=== PATIENT | male | born 1965 | race Caucasian/White ===

== ENCOUNTER 2017-04-03 16:15 | Emergency (ER) | payer OTHER ==
--- NOTE | 2017-04-03 16:49 | PDOC ---
History of Present Illness - General History Source: Patient Exam Limitations: No Limitations - History of Present Illness Initial Comments: 04/03/17 17:04 The patient is a 51 year old male, with a significant past medical history of hypertension, hyperlipidemia, and asthmatic bronchitis, who presents to the emergency department s/p sustaining a laceration to his left finger earlier this afternoon. The patient reports he was at the [employer] office earlier today, and placed his left hand in a metal mail slot to place a letter. However , when he went to pull his hand out, he reports his left index finger got caught. Patient reports cutting his left index finger and being able to see his bone. He denies any pain at the site of the laceration. He denies any fever , chills, or dizziness. He denies any shortness of breath, diaphoresis, or palpitations. Allergies: None reported Past Surgical History: None reported Social History: Non smoker. No ETOH or drug use. PCP: Dr. Vasquez <Ernestina Kemp - Last Filed: 04/03/17 17:05> <Paige Kumar - Last Filed: 04/07/17 07:56> - General Chief Complaint: Injury Stated Complaint: LEFT FINGER LACERATION Time Seen by Provider: 04/03/17 16:47 Past History <Ernestina Kemp - Last Filed: 04/03/17 17:05> - Past Medical History HTN: Yes Hypercholesterolemia: Yes - Immunization History Td Vaccination: No - Psycho/Social/Smoking Cessation Hx Anxiety: No Suicidal Ideation: No Smoking Status: No Smoking History: Unknown if ever smoked Number of Cigarettes Smoked Daily: 0 Hx Alcohol Use: No Substance Use Type: None <Paige Kumar - Last Filed: 04/07/17 07:56> - Past Medical History Allergies/Adverse Reactions: Allergies Allergy/AdvReac Type Severity Reaction Status Date / Time No Known Allergies Allergy Verified 04/03/17 16:50 Home Medications: Ambulatory Orders Allopurinol [Zyloprim -] 150 mg PO DAILY 09/10/13 Albuterol Sulfate Inhaler - [Ventolin HFA Inhaler -] 1 - 2 inh PO Q4H #1 inhaler 10/06/14 Rosuvastatin Calcium [Crestor] 10 mg PO DAILY 10/06/14 Fish Oil 06/19/17 Ibuprofen [Motrin -] 600 mg PO TID #21 tablet 04/03/17 Montelukast Na [Singulair] 10 mg PO Q48H 04/03/17 [place]-3 Acid Ethyl Esters [Lovaza] 1 gm PO DAILY 04/03/17 Oxycodone HCl/Acetaminophen [Percocet 5-325 mg Tablet] 1 tab PO Q6H PRN #12 tablet MDD 4 tabs 04/03/17 Review of Systems - Review of Systems Able to Perform ROS?: Yes Comments:: 04/03/17 17:04 GENERAL/CONSTITUTIONAL: No fever or chills. No weakness. HEAD, EYES, EARS, NOSE AND THROAT: No change in vision. No ear pain or discharge. No sore throat. CARDIOVASCULAR: No chest pain or shortness of breath. RESPIRATORY: No cough, wheezing, or hemoptysis. GASTROINTESTINAL: No nausea, vomiting, diarrhea or constipation. GENITOURINARY: No dysuria, frequency, or change in urination. MUSCULOSKELETAL: No joint or muscle swelling or pain. No neck or back pain. SKIN: Yes: +laceration to left index finger. No rash NEUROLOGIC: No headache, vertigo, loss of consciousness, or change in strength/ sensation. ENDOCRINE: No increased thirst. No abnormal weight change. HEMATOLOGIC/LYMPHATIC: No anemia, easy bleeding, or history of blood clots. ALLERGIC/IMMUNOLOGIC: No hives or skin allergy. <Ernestina Kemp - Last Filed: 04/03/17 17:05> *Physical Exam - Vital Signs Last Vital Signs Temp Pulse Resp BP Pulse Ox 99.1 F 72 15 125/84 96 04/03/17 16:46 04/03/17 16:46 04/03/17 16:46 04/03/17 16:46 04/03/17 16:46 <Ernestina Kemp - Last Filed: 04/03/17 17:05> - Physical Exam Comments: GENERAL: Awake, alert, and fully oriented, in no acute distress. Anxious. HEAD: No signs of trauma EXTREMITIES: L index finger with C-shaped laceration overlying the PIP joint, dorsal surface. Mild oozing of blood. Tendon function intact for flexion and extension of the finger. L 3rd finger with small abrasion, no active bleeding. Remainder of extremities with normal range of motion, no edema. No clubbing or cyanosis. No cords, erythema, or tenderness NEUROLOGICAL: Cranial nerves II through XII grossly intact. Normal speech, normal gait SKIN: Warm, Dry, normal turgor, no rashes or lesions noted. <Paige Kumar - Last Filed: 04/07/17 07:56> Procedures - Laceration/Wound Repair Left Dorsal Finger 2nd digit Wound Length: to 2.5 cm Wound Explored: clean, no foreign body present Wound's Depth, Shape: superficial, flap Irrigated w/ Saline: Yes Betadine Prep: Yes Anesthesia: 1% Lidocaine Amount of Anesthetic (ccs): 3 Wound Repaired With: Sutures Suture Size/Type: 4:0, proline Number of Sutures: 6 Layer Closure: No Sterile Dressing Applied: Yes Splint Applied: Yes <Paige Kumar - Last Filed: 04/07/17 07:56> *DC/Admit/Observation/Transfer - Attestations Scribe Attestion: 04/03/17 17:05 Documentation prepared by Ernestina Kemp, acting as medical records technician for Paige Kumar MD. <Ernestina Kemp - Last Filed: 04/03/17 17:05> - Discharge Dispostion Admit: No <Paige Kumar - Last Filed: 04/07/17 07:56> Diagnosis at time of Disposition: Finger laceration Qualifiers: Encounter type: initial encounter Finger: index finger Damage to nail status: without damage Foreign body presence: without foreign body Laterality: left Qualified Code(s): S61.211A - Laceration without foreign body of left index finger without damage to nail, initial encounter - Discharge Dispostion Disposition: HOME Condition at time of disposition: Stable - Prescriptions Prescriptions: Ibuprofen [Motrin -] 600 mg PO TID #21 tablet Oxycodone HCl/Acetaminophen [Percocet 5-325 mg Tablet] 1 tab PO Q6H PRN #12 tablet MDD 4 tabs PRN Reason: Severe Pain - Referrals Referrals: Syed Vasquez MD [Primary Care Provider] - - Patient Instructions Printed Discharge Instructions: DI for Laceration Repair -- Finger Additional Instructions: RETURN TO THE ER BETWEEN 04/12-04/14 TO HAVE SUTURES REMOVED. KEEP SPLINT IN PLACE AT ALL TIMES. RETURN TO THE ER IMMEDIATELY IF YOU HAVE SEVERE PAIN, WORSENING REDNESS, RED STREAKS UP YOUR ARM, OR DRAINAGE FROM THE WOUND. KEEP THE WOUND DRY FOR THE FIRST 48 HOURS. AFTER THAT IT IS OK TO GET IT WET, BUT DO NOT APPLY ANY LOTIONS, CREAMS, OR SOAPS.
[2017-04-03 17:02] VITALS: BP 125/84; PULSE 72; TEMP 99.1; BMI 28.3
[2017-04-03] MEDS ORDERED: DIPHTH,PERTUSS(ACELL),TET VAC 0.5 ML VIAL IM ONE (17:23)
== END 2017-04-03 17:37 | disposition home or self-care (01) ==
LOC: FER 16:15
PROC: 0HQGXZZ Repair Left Hand Skin, External Approach (ICD-10-PCS; principal; 2017-04-03)
PROC: 3E0234Z Introduction of Serum, Toxoid and Vaccine into Muscle, Percutaneous Approach (ICD-10-PCS; 2017-04-03)
DX: S61.211A Laceration without foreign body of left index finger without damage to nail, initial encounter (principal); W26.9XXA Contact with unspecified sharp object(s), initial encounter; Y93.89 Activity, other specified; Y92.512 Supermarket, store or market as the place of occurrence of the external cause; I10 Essential (primary) hypertension; E78.00 Pure hypercholesterolemia, unspecified
CPT/HCPCS: 99282-25

== ENCOUNTER 2019-02-20 09:06 | Day surgery (SDC) | payer OTHER ==
[2018-12-28 09:46] VITALS: BMI 28.7
[2019-02-20] MEDS ORDERED: PROPOFOL 20 ML ONE ×6 (10:31)
[2019-02-20 11:22] VITALS: PULSE 65
[2019-02-20 11:42] VITALS: BP 110/65; TEMP 98
--- NOTE | 2019-02-26 13:05 | PATH ---
Surgical Pathology Report Patient Name: CHRISSIE DALLAS Med. Rec. #: [id number] /Age/Gender: 1965 (Age: 53) / M Account: [id number] Location: [facility] Taken: 02/20/2019 Received: 02/20/2019 Reported: 02/22/2019 Physicians: Simin Garnica M.D. Specimen(s) Received BX POLYP PROXIMAL TRANSVERSE COLON Clinical History History of polyps. Postoperative: Polyp, diverticulosis Final Diagnosis PROXIMAL TRANSVERSE COLON POLYP, BIOPSY: POLYPOID COLONIC MUCOSA WITH NO SIGNIFICANT PATHOLOGIC CHANGE. Electronically Signed Caroline Miller M.D. Gross Description Received in formalin, labeled, "polyp, proximal transverse colon" is one piece of yellow-drake tissue measuring 0.3 cm in greatest dimension. Entirely submitted in one cassette. AE/02/20/2019 ebram/02/20/2019
== END 2019-02-20 11:50 | disposition home or self-care (01) ==
LOC: FASU-ENDO 09:06
PROVIDERS: ATTEND Internal Medicine Gastroenterology
PROC: 0DBL8ZX Excision of Transverse Colon, Via Natural or Artificial Opening Endoscopic, Diagnostic (ICD-10-PCS; principal; 2019-02-20 09:29)
DX: Z86.010 Personal history of colon polyps (principal); D12.3 Benign neoplasm of transverse colon; K57.30 Diverticulosis of large intestine without perforation or abscess without bleeding; K64.0 First degree hemorrhoids
CPT/HCPCS: 88305-TC

== ENCOUNTER 2019-09-16 15:34 | Emergency (ER) | payer OTHER ==
[2019-09-16 15:44] VITALS: BP 122/83; PULSE 63; TEMP 97.6; BMI 28.1
--- NOTE | 2019-09-16 15:53 | PDOC ---
History of Present Illness - General Chief Complaint: Chest Pain Stated Complaint: "I have chest pain" Time Seen by Provider: 09/16/19 15:53 - History of Present Illness Initial Comments: 09/16/19 16:52 HPI: 54 y/o M with hx of HTN, HLD, asthma, testicular cancer s/p resection presenting with left sided chest pain x6days. He said Pain is primarily over inferior portion of chest without radiation. Pain is intermittent and only occurs when eating or drinking something. He feels the pain has been increasing in frequency. He describes it mostly as a squeezing discomfort than pain. . He denies choking or dysphagia. His pcp sent him to the ED for ekg and ruleout acs. He denies heartburn, fever, chills, palpitations, SOB, abd pain, n/v. PMHx: as noted above ROS: as noted SHx: Denies tobacco use; occasional alcohol use; no rec drugs Allergies: NKDA ROS: GENERAL/CONSTITUTIONAL: No fever or chills. No weakness. HEAD, EYES, EARS, NOSE AND THROAT: No change in vision. No ear pain or discharge. No sore throat. CARDIOVASCULAR: +chest pain; shortness of breath RESPIRATORY: +wheeze; No cough or hemoptysis. GASTROINTESTINAL: No nausea, vomiting, diarrhea or constipation. GENITOURINARY: No dysuria, frequency, or change in urination. MUSCULOSKELETAL: No joint or muscle swelling or pain. No neck or back pain. SKIN: No rash NEUROLOGIC: No headache, vertigo, loss of consciousness, or change in strength/ sensation. ENDOCRINE: No increased thirst. No abnormal weight change HEMATOLOGIC/LYMPHATIC: No anemia, easy bleeding, or history of blood clots. ALLERGIC/IMMUNOLOGIC: No hives or skin allergy. PE: GENERAL: Awake, alert, and fully oriented, no acute distress HEAD: No signs of trauma, normocephalic, atraumatic EYES: EOMI, sclera anicteric, conjunctiva clear ENT: Auricles normal inspection, hearing grossly normal, nares patent, oropharynx clear without exudates. Moist mucosa NECK: Normal ROM, no lymphadenopathy LUNGS: No increased work of breathing, symmetrical chest rise, BL upper and middle lobe end expiratory wheezes, crackles or rhonchi HEART: Regular rate and rhythm, normal S1 and S2, no murmurs, peripheral pulses 2+ and equal bilaterally. ABDOMEN: Soft, nondistended, nontender, normoactive bowel sounds. No guarding, no rebound. No masses. No CVAT EXTREMITIES: Normal inspection, Normal range of motion, no edema. No clubbing or cyanosis. NEUROLOGICAL: Cranial nerves II through XII grossly intact. Normal speech, normal gait, no focal sensorimotor deficits SKIN: Warm, Dry, normal turgor, no rashes or lesions noted Past History - Past Medical History Allergies/Adverse Reactions: Allergies Allergy/AdvReac Type Severity Reaction Status Date / Time No Known Allergies Allergy Verified 09/16/19 15:36 Home Medications: Ambulatory Orders Allopurinol [Zyloprim -] 150 mg PO DAILY 09/10/13 Rosuvastatin Calcium [Crestor] 10 mg PO DAILY 10/06/14 Montelukast Na [Singulair -] 10 mg PO Q48H 04/03/17 [place]-3 Acid Ethyl Esters [Lovaza] 1 gm PO DAILY 04/03/17 Oxycodone HCl/Acetaminophen [Percocet 5-325 mg Tablet] 1 tab PO Q6H PRN #12 tablet MDD 4 tabs 04/03/17 Aspirin [Aspirin EC] 81 mg PO DAILY 12/28/18 Metoprolol Succinate [Toprol Xl] 1 each PO HS 12/28/18 Ibuprofen [Motrin -] 600 mg PO TID PRN 02/15/19 [place]-3 Fatty Acids/Fish Oil [Fish Oil 1,000 mg Capsule] 1 each PO DAILY Famotidine [Pepcid] 20 mg PO DAILY #20 tablet 09/16/19 Anemia: No Asthma: Yes Cancer: Yes (TESTICULAR AGE 23) Cardiac Disorders: No CVA: No COPD: No CHF: No Dementia: No Diabetes: No GI Disorders: No Disorders: No HTN: Yes Hypercholesterolemia: Yes Liver Disease: No Seizures: No Thyroid Disease: No - Surgical History Abdominal Surgery: No Appendectomy: No Cardiac Surgery: No Cholecystectomy: No Lung Surgery: No Neurologic Surgery: No Orthopedic Surgery: Yes (KNEE) - Immunization History Td Vaccination: No - Psycho Social/Smoking Cessation Hx Smoking Status: No Smoking History: Former smoker Have you smoked in the past 12 months: No Number of Cigarettes Smoked Daily: 0 Information on smoking cessation initiated: No Hx Alcohol Use: No Drug/Substance Use Hx: No Substance Use Type: Alcohol Hx Substance Use Treatment: No *Physical Exam - Vital Signs Last Vital Signs Temp Pulse Resp BP Pulse Ox 97.6 F 63 18 122/83 97 09/16/19 15:36 09/16/19 15:36 09/16/19 15:36 09/16/19 15:36 09/16/19 15:36 Medical Decision Making - Medical Decision Making 09/16/19 19:05 54 y/o M with hx of HTN, HLD, asthma, testicular cancer s/p resection presenting with left sided chest pain x6days present only with PO intake that is occurring more frequently. VSS, AF. PE unremarkable. DDx includes esophagitis , acs, mass, diverticulum -trop, ekg, cxr 09/16/19 19:07 trop negative ekg nsr, nl itnervals, no [place]/d cxr with no acute patholgoy discussed results with patient; will prescribe pepcid and D home; patient understands return pcxns and will followup with PCP and his GI for further workup and evaluation Discharge - Discharge Information Problems reviewed: Yes Clinical Impression/Diagnosis: Chest pain Qualifiers: Chest pain type: unspecified Qualified Code(s): R07.9 - Chest pain, unspecified Condition: Stable Disposition: HOME - Additional Discharge Information Prescriptions: Famotidine [Pepcid] 20 mg PO DAILY #20 tablet - Follow up/Referral Referrals: Simin Garnica DO [Staff Physician] - - Patient Discharge Instructions Patient Printed Discharge Instructions: DI for Atypical Chest Pain Additional Instructions: Additional Instructions: Please return to the emergency department with any new or worsening symptoms or concerns including increased pain, difficulty breathing, fainting, choking, inability to tolerate food. Please follow up with your GI doctor Dr Garnica within 48 hours. Please followup with your PCP as well this week I have sent Pepcid to your pharmacy. Please 20mg daily. You may also take tylenol for pain control - Post Discharge Activity
--- NOTE | 2019-09-16 15:54 | PDOC ---
Attending Attestation - Resident Resident Name: Dejuan Fuentes - HPI HPI: 09/16/19 17:04 Pt presents to the ED complaining of a one week history of intermittent left sided chest pain that occurrs when swallowing only. Patient states that he has this sensation with both solids and liquids and that it does not happen every time he swallows. He denies chest pain under any other circumstances. He is able to tolerate his normal diet without difficulty. Denies shortness of breath. - Physicial Exam PE: 09/16/19 17:10 gen: alert, NAD CV: rrr no m/r/g Pulm: cTA b/l Abdomen soft, non tender, non distended without guarding or rebound - Medical Decision Making 09/16/19 17:13 Pt presents to the ED complaining of L sided chest pain with swallowing only. Presented because he was concerned for cardiac causes. ACS is unlikely given history and presentation. EKG and troponin are normal. CXR shows no thoracic masses. Will discharge home with instructions to return to the ED for worsening symptoms and to follow up with PCP. Patient is aware that these symptoms may represent ulcer or esophageal disorder and need follow up.
--- NOTE | 2019-09-17 09:23 | EKG ---
Test Reason : Blood Pressure : / mmHG Vent. Rate : 060 BPM Atrial Rate : 060 BPM P-R Int : 170 ms QRS Dur : 100 ms QT Int : 406 ms P-R-T Axes : 037 002 039 degrees QTc Int : 406 ms NORMAL SINUS RHYTHM CANNOT RULE OUT INFERIOR INFARCT , AGE UNDETERMINED ABNORMAL ECG NO PREVIOUS ECGS AVAILABLE Confirmed by MD Yimi, Francisco ([id number]) on 09/17/2019 9:23:28 AM Referred By: Confirmed By:Francisco Geller MD
== END 2019-09-16 17:07 | disposition home or self-care (01) ==
LOC: FER 15:34
DX: R07.9 Chest pain, unspecified (principal); I10 Essential (primary) hypertension; E78.5 Hyperlipidemia, unspecified; J45.909 Unspecified asthma, uncomplicated; Z87.891 Personal history of nicotine dependence
CPT/HCPCS: 36415; 71046-TC-FY; 84484; 93005; 99282-25

== ENCOUNTER 2019-10-23 09:03 | Day surgery (SDC) | payer OTHER ==
[2019-10-23 09:23] VITALS: BMI 28.1
[2019-10-23] MEDS ORDERED: PROPOFOL 20 ML ONE ×2 (09:54)
[2019-10-23 11:16] VITALS: PULSE 66; TEMP 97.6
[2019-10-23 11:33] VITALS: BP 115/70
--- NOTE | 2019-10-25 16:46 | PATH ---
Surgical Pathology Report Patient Name: CHRISSIE DALLAS [facility]. Rec. #: [id number] /Age/Gender: 1965 (Age: 54) / M Account: [id number] Location: [facility] Taken: 10/23/2019 Received: 10/23/2019 Reported: 10/25/2019 Physicians: Simin Garnica M.D. Specimen(s) Received A: SECOND PORTION DUODENUM B: ANTRUM C: GE JUNCTION Clinical History Abdominal pain Postoperative diagnosis: Gastritis, small hiatal hernia Final Diagnosis A. SECOND PORTION OF DUODENUM, BIOPSY: DUODENUAL MUCOSA WITH NO SIGNIFICANT PATHOLOGIC CHANGE. NO HISTOLOGIC EVIDENCE OF INTRAEPITHELIAL LYMPHOCYTOSIS. B. GASTRIC ANTRUM, BIOPSY: GASTRIC MUCOSA WITH CHRONIC GASTRITIS AND REACTIVE GASTROPATHY. IMMUNOSTAIN FOR H. PYLORI IS NEGATIVE. NEGATIVE FOR INTESTINAL METAPLASIA. C. GE JUNCTION, BIOPSY: COLUMNAR (GASTRIC) MUCOSA WITH NO SIGNIFICANT PATHOLOGIC CHANGE. NEGATIVE FOR INTESTINAL METAPLASIA. Electronically Signed Caroline Miller M.D. Gross Description A. Received in formalin, labeled "biopsy second portion of duodenum" is a drake, irregular portion of soft tissue measuring 0.3 cm. in greatest dimension. The specimen is submitted in toto in one cassette. B. Received in formalin, labeled "biopsy gastric antrum" is a drake, irregular portion of soft tissue measuring 0.3 cm. in greatest dimension. The specimen is submitted in toto in one cassette. C. Received in formalin, labeled "biopsy GE junction" is a drake, irregular portion of soft tissue measuring 0.2 cm. in greatest dimension. The specimen is submitted in toto in one cassette. 10/24/2019 saudi10/24/2019
== END 2019-10-23 11:25 | disposition home or self-care (01) ==
LOC: FASU-ENDO 09:03
PROVIDERS: ATTEND Internal Medicine Gastroenterology
PROC: 0DB68ZX Excision of Stomach, Via Natural or Artificial Opening Endoscopic, Diagnostic (ICD-10-PCS; 2019-10-23)
PROC: 0DB48ZX Excision of Esophagogastric Junction, Via Natural or Artificial Opening Endoscopic, Diagnostic (ICD-10-PCS; 2019-10-23)
PROC: 0DB98ZX Excision of Duodenum, Via Natural or Artificial Opening Endoscopic, Diagnostic (ICD-10-PCS; principal; 2019-10-23 10:39)
DX: K29.50 Unspecified chronic gastritis without bleeding (principal); K31.9 Disease of stomach and duodenum, unspecified; R07.89 Other chest pain; K44.9 Diaphragmatic hernia without obstruction or gangrene
CPT/HCPCS: 88305-TC; 88342-TC

== ENCOUNTER 2021-05-16 10:55 | Emergency (ER) | payer OTHER ==
[2021-05-17 14:07] LABS: SARS-CoV-2 NAA Detected (Not Detected)
== END 2021-05-16 11:55 | disposition home or self-care (01) ==
LOC: JVIRT 10:55
DX: Z11.52 Encounter for screening for COVID-19 (principal)
CPT/HCPCS: C9803; Q3014-GT; U0003; U0005

== ENCOUNTER 2021-06-27 22:58 | Emergency (ER) | payer OTHER ==
[2021-06-28] MEDS ORDERED: ALBUTEROL SO4 2.5/IPRATROPIUM 0.5 INH SOL 3 ML VIAL.NEB. NEB ONE ×4 (00:37→00:41)
[2021-06-28] MEDS ORDERED: predniSONE 20 MG TABLET (UD) PO ONE (01:10)
[2021-06-28] MEDS ORDERED: predniSONE 20 MG TABLET (UD) ONE (01:13)
== END 2021-06-28 01:17 | disposition home or self-care (01) ==
LOC: FER 22:58
PROC: 3E0F7GC Introduction of Other Therapeutic Substance into Respiratory Tract, Via Natural or Artificial Opening (ICD-10-PCS; principal; 2021-06-27)
DX: J45.901 Unspecified asthma with (acute) exacerbation (principal)
CPT/HCPCS: 94640; 99284-25

== ENCOUNTER 2021-09-01 12:00 | Emergency (ER) | payer OTHER ==
[2021-09-01] MEDS ORDERED: ALBUTEROL SO4 2.5/IPRATROPIUM 0.5 INH SOL 3 ML VIAL.NEB. NEB ONE ×4 (12:03→12:38)
[2021-09-01 12:06] VITALS: BP 133/94; PULSE 80; TEMP 98.7; BMI 27.5
[2021-09-01] MEDS ORDERED: predniSONE 20 MG TABLET (UD) PO ONE (12:44)
[2021-09-01] MEDS ORDERED: predniSONE 20 MG TABLET (UD) ONE ×2 (13:49→13:50)
== END 2021-09-01 13:57 | disposition home or self-care (01) ==
LOC: FER 12:00
PROC: 3E0F7GC Introduction of Other Therapeutic Substance into Respiratory Tract, Via Natural or Artificial Opening (ICD-10-PCS; principal; 2021-09-01)
PROC: 3E0F7GC Introduction of Other Therapeutic Substance into Respiratory Tract, Via Natural or Artificial Opening (ICD-10-PCS; 2021-09-01)
DX: J45.21 Mild intermittent asthma with (acute) exacerbation (principal)
CPT/HCPCS: 99283-25

== ENCOUNTER 2022-03-16 14:40 | Emergency (ER) | payer OTHER ==
[2022-03-16 15:08] VITALS: BP 127/78; PULSE 74; TEMP 99; BMI 27.5
[2022-03-16] MEDS ORDERED: ALBUTEROL SO4 2.5/IPRATROPIUM 0.5 INH SOL 3 ML VIAL.NEB. NEB ONE ×2 (15:30→15:39)
[2022-03-16] MEDS ORDERED: ALBUTEROL SO4 HFA INHALER IH ONE ×2 (15:59→16:00)
== END 2022-03-16 16:00 | disposition home or self-care (01) ==
LOC: FER 14:40
PROC: 3E0F7GC Introduction of Other Therapeutic Substance into Respiratory Tract, Via Natural or Artificial Opening (ICD-10-PCS; principal; 2022-03-16)
DX: J06.9 Acute upper respiratory infection, unspecified (principal)
CPT/HCPCS: 0241U-QW; 71046-TC-FY; 99284-25

== ENCOUNTER 2025-02-16 08:24 | Emergency (ER) | payer OTHER ==
[2025-02-16 08:31] VITALS: RESP 18; TEMP 98.4; BMI 28.1
[2025-02-16] MEDS ORDERED: DEXAMETHASONE SOD PHOSPHATE 10 MG/1 ML VIAL ONE (08:57)
[2025-02-16] MEDS: DEXAMETHASONE SOD PHOSPHATE 10 MG/1 ML VIAL IM ONE (09:03)
[2025-02-16] MEDS: ALBUTEROL SO4 2.5/IPRATROPIUM 0.5 INH SOL 3 ML VIAL.NEB. NEB SCH (09:10)
[2025-02-16] MEDS ORDERED: ALBUTEROL SO4 0.083% IH SOL 2.5 MG/3 ML VIAL.NEB. NEB ONE (10:09)
[2025-02-16] MEDS: ALBUTEROL SO4 0.083% IH SOL 2.5 MG/3 ML VIAL.NEB. NEB ONE (10:13)
[2025-02-16 10:34] VITALS: BP 106/64; PULSE 70
== END 2025-02-16 10:52 | disposition home or self-care (01) ==
LOC: FER 08:24
PROC: 3E023GC Introduction of Other Therapeutic Substance into Muscle, Percutaneous Approach (ICD-10-PCS; principal; 2025-02-16)
PROC: 3E0F7GC Introduction of Other Therapeutic Substance into Respiratory Tract, Via Natural or Artificial Opening (ICD-10-PCS; 2025-02-16)
PROC: 3E0F7GC Introduction of Other Therapeutic Substance into Respiratory Tract, Via Natural or Artificial Opening (ICD-10-PCS; 2025-02-16)
DX: J45.901 Unspecified asthma with (acute) exacerbation (principal); R06.02 Shortness of breath; R05.9 Cough, unspecified
CPT/HCPCS: 0241U-QW; 71046-TC-FY; 99284-25; J1100